=== PATIENT | male | born 1990 | race African-American/Black ===

== ENCOUNTER 2019-11-08 19:57 | Emergency (ER) | payer OTHER ==
[~2019-11-08] VITALS: Ht 175.3 cm; Wt 65.8 kg
[2019-11-08 20:08] VITALS: BP 144/77
[2019-11-08] MEDS ORDERED: AMOXICILLIN 50500 MG PO (20:26)
[2019-11-08] MEDS ORDERED: PERIOGARD473 ML SWISH&SPIT (20:27)
== END 2019-11-08 20:39 | disposition home or self-care (01) ==
LOC: M.ERS 19:57
DX: K08.89 Other specified disorders of teeth and supporting structures (principal)

== ENCOUNTER 2020-03-28 19:17 | Emergency (ER) | payer OTHER ==
[~2020-03-28] VITALS: Ht 172.7 cm; Wt 68.0 kg
[~2020-03-28 19:17] MED LIST: AMOXICILLIN 50500 MG PO; PERIOGARD473 ML SWISH&SPIT
[2020-03-28 19:37] LABS: URINE BILIRUBIN NEGATIVE (Negative); URINE BLOOD NEGATIVE (Negative); URINE CLARITY CLOUDY; URINE COLOR YELLOW; URINE GLUCOSE-RANDOM NEGATIVE (Negative); URINE KETONES NEGATIVE (Negative); URINE LEUKOCYTES-REFLEX 1+ (Negative); URINE NITRITE-REFLEX NEGATIVE (Negative); URINE PROTEIN NEGATIVE (Negative); URINE SPECIFIC GRAVITY 1.025 (1.005-1.030); URINE UROBILINOGEN 0.2 E.U./dl (0.2-1.0)
[2020-03-28 20:42] LABS: BACTERIA-REFLEX 1-9 Few /HPF (None Seen); CASTS None Seen /LPF (None Seen); CRYSTALS None Seen /LPF (None Seen); SQUAMOUS 0-3 Few /LPF (0-3); URINE RBC 0-2 Rare /HPF (0-2); URINE WBC-REFLEX >25 Many /HPF (0-5)
[2020-03-28] MEDS ORDERED: DOXYCYCLINE 10100 MG PO (20:51)
[2020-03-28 21:05] VITALS: BP 122/74
== END 2020-03-28 21:05 | disposition home or self-care (01) ==
LOC: M.ERS 19:17
PROVIDERS: Emergency Medicine
DX: N39.0 Urinary tract infection, site not specified (principal)

== ENCOUNTER 2020-05-14 15:55 | Emergency (ER) | payer OTHER ==
[~2020-05-14] VITALS: Ht 175.3 cm; Wt 68.0 kg
[~2020-05-14 15:55] MED LIST changes: +DOXYCYCLINE 10100 MG PO
[2020-05-14 16:17] LABS: URINE BILIRUBIN NEGATIVE (Negative); URINE BLOOD NEGATIVE (Negative); URINE CLARITY CLEAR; URINE COLOR YELLOW; URINE GLUCOSE-RANDOM NEGATIVE (Negative); URINE KETONES NEGATIVE (Negative); URINE LEUKOCYTES-REFLEX NEGATIVE (Negative); URINE NITRITE-REFLEX NEGATIVE (Negative); URINE PROTEIN NEGATIVE (Negative); URINE UROBILINOGEN 0.2 E.U./dl (0.2-1.0)
[2020-05-14 16:37] VITALS: BP 130/68
== END 2020-05-14 16:38 | disposition home or self-care (01) ==
LOC: M.ERS 15:55
PROVIDERS: Nurse Practitioner Family
DX: N34.2 Other urethritis (principal)

== ENCOUNTER 2020-07-01 00:55 | Emergency (ER) | payer OTHER ==
[~2020-07-01] VITALS: Ht 175.3 cm; Wt 65.8 kg
[2020-07-01 01:50] VITALS: BP 150/96
== END 2020-07-01 01:51 | disposition left against medical advice (07) ==
LOC: M.ERS 00:55
DX: Z53.21 Procedure and treatment not carried out due to patient leaving prior to being seen by health care provider (principal)

== ENCOUNTER 2020-07-01 10:45 | Emergency (ER) | payer OTHER ==
[~2020-07-01] VITALS: Ht 177.8 cm; Wt 61.2 kg
[2020-07-01 11:18] LABS: ABSOLUTE BASOPHILS 0.1 thou/uL (0.0-0.2); ABSOLUTE EOSINOPHILS 0.8 thou/uL (0.0-0.7); ABSOLUTE LYMPHOCYTES 3.2 thou/uL (0.8-5.3); ABSOLUTE NEUTROPHILS 4.2 thou/uL (1.6-8.1); BASOPHILS 1.3 %; HEMATOCRIT 43.9 % (42.0-52.0); HEMOGLOBIN 14.3 gm/dL (14.0-18.0); LYMPHOCYTES 34.6 %; MCH 27.4 pg (26.0-34.0); MCHC 32.7 g/dL (28.0-37.0); MCV 83.9 fL (80.0-100.0); MPV 7.2 fl. (7.2-11.1); NUCLEATED RBCS 0 /100WBC; PLATELET COUNT* 272 thou/uL (150-400); POLYS 45.1 %; RBC 5.23 mil/uL (4.50-6.00); RDW-CV 13.2 % (10.5-14.5); WBC 9.4 thou/uL (4.0-11.0)
[2020-07-01 11:31] LABS: CALCIUM 9.3 mg/dL (8.5-10.1); CREATININE 1.1 mg/dL (0.6-1.3); POTASSIUM 3.3 mmol/L (3.5-5.1)
[2020-07-01 11:33] LABS: ACETAMINOPHEN < 2 ug/mL (10-30); ALCOHOL < 10 mg/dL (<10); SALICYLATE 3.4 mg/dL (2.8-20.0)
[2020-07-01 11:36] LABS: ALBUMIN 4.3 g/dL (3.4-5.0); TOTAL BILIRUBIN 0.4 mg/dL (<0.1-1.0); TOTAL PROTEIN 7.6 g/dL (6.4-8.2)
[2020-07-01 11:53] LABS: URINE BILIRUBIN NEGATIVE (Negative); URINE BLOOD NEGATIVE (Negative); URINE CLARITY CLEAR; URINE COLOR YELLOW; URINE GLUCOSE-RANDOM NEGATIVE (Negative); URINE KETONES 1+ (Negative); URINE LEUKOCYTES-REFLEX NEGATIVE (Negative); URINE NITRITE-REFLEX NEGATIVE (Negative); URINE PROTEIN NEGATIVE (Negative); URINE SPECIFIC GRAVITY >= 1.030 (1.005-1.030); URINE UROBILINOGEN 0.2 E.U./dl (0.2-1.0)
[2020-07-01 12:05] LABS: AMP/METHAMP Negative (Negative); BARBITURATES Negative (Negative); BENZODIAZEPINES Negative (Negative); COCAINE Negative (Negative); METHADONE Negative (Negative); OPIATES Negative (Negative); PCP Negative (Negative); THC POSITIVE (Negative)
[2020-07-03 13:07] VITALS: BP 145/90
== END 2020-07-03 13:07 ==
LOC: M.ERS 10:45
PROVIDERS: Emergency Medicine Emergency Medical Services
DX: F29 Unspecified psychosis not due to a substance or known physiological condition (principal); F31.9 Bipolar disorder, unspecified; F20.9 Schizophrenia, unspecified; Z20.828 Contact with and (suspected) exposure to other viral communicable diseases

== ENCOUNTER 2020-09-04 12:36 | Inpatient (IN) | payer OTHER ==
[~2020-09-04] VITALS: Ht 172.7 cm; Wt 78.5 kg
[2020-09-04 12:38] VITALS: BP 137/98
[2020-09-04 13:05] LABS: ABSOLUTE BASOPHILS 0.1 thou/uL (0.0-0.2); ABSOLUTE EOSINOPHILS 0.7 thou/uL (0.0-0.7); ABSOLUTE LYMPHOCYTES 2.1 thou/uL (0.8-5.3); ABSOLUTE MONOCYTES 0.9 thou/uL (0.0-1.2); ABSOLUTE NEUTROPHILS 4.8 thou/uL (1.6-8.1); BASOPHILS 1.3 %; EOSINOPHILS 8.5 %; HEMATOCRIT 44.2 % (42.0-52.0); HEMOGLOBIN 14.4 gm/dL (14.0-18.0); LYMPHOCYTES 23.7 %; MCHC 32.5 g/dL (28.0-37.0); MONOCYTES 10.9 %; MPV 6.7 fl. (7.2-11.1); NUCLEATED RBCS 0 /100WBC; PLATELET COUNT* 325 thou/uL (150-400); POLYS 55.6 %; RBC 5.32 mil/uL (4.50-6.00); RDW-CV 15.1 % (10.5-14.5); WBC 8.7 thou/uL (4.0-11.0)
[2020-09-04 13:14] LABS: CALCIUM 8.8 mg/dL (8.5-10.1); CREATININE 1.1 mg/dL (0.6-1.3); POTASSIUM 3.8 mmol/L (3.5-5.1)
[2020-09-04 13:22] LABS: ACETAMINOPHEN < 2 ug/mL (10-30); ALCOHOL < 10 mg/dL (<10); SALICYLATE < 2.8 mg/dL (2.8-20.0)
[2020-09-04 13:26] LABS: ALBUMIN 3.5 g/dL (3.4-5.0); TOTAL BILIRUBIN 0.2 mg/dL (<0.1-1.0); TOTAL PROTEIN 6.6 g/dL (6.4-8.2)
[2020-09-04 13:27] LABS: URINE BILIRUBIN NEGATIVE (Negative); URINE BLOOD NEGATIVE (Negative); URINE CLARITY CLEAR; URINE COLOR YELLOW; URINE GLUCOSE-RANDOM NEGATIVE (Negative); URINE KETONES NEGATIVE (Negative); URINE LEUKOCYTES-REFLEX NEGATIVE (Negative); URINE NITRITE-REFLEX NEGATIVE (Negative); URINE PROTEIN NEGATIVE (Negative); URINE SPECIFIC GRAVITY 1.025 (1.005-1.030); URINE UROBILINOGEN 0.2 E.U./dl (0.2-1.0)
[2020-09-04 13:35] LABS: AMP/METHAMP Negative (Negative); BARBITURATES Negative (Negative); BENZODIAZEPINES Negative (Negative); COCAINE Negative (Negative); METHADONE Negative (Negative); OPIATES Negative (Negative); PCP Negative (Negative); THC POSITIVE (Negative)
[2020-09-04] MEDS ORDERED: ABILIFY 5 MG TAB5 MG PO (20:36)
[2020-09-04] MEDS ORDERED: DESYREL150 MG PO (20:37)
[2020-09-05] VITALS (7 sets, daily range): BP systolic 112–129; BP diastolic 61–84
[2020-09-05 11:01] LABS: CALCIUM 9.5 mg/dL (8.5-10.1); CREATININE 1.2 mg/dL (0.6-1.3); POTASSIUM 4.7 mmol/L (3.5-5.1)
--- NOTE | 2020-09-05 14:58 | 2DMMODE ---
[place] [address] 2 D/M-MODE ECHOCARDIOGRAM Name: MAVERICK GASCA [facility] Room: [address] IN [facility]#: [id number] Admission: 09/05/20 Attend Phys: Jeanne Hopkins, Discharge: Date of : 89 Date of Service: 09/05/20 1457 Report #: [id number] THIS REPORT FOR: cc: FAM - No family physician/PCP FAM - No family physician/PCP Terry Alvarez MD [facility] ~ APPROVED REPORT Study performed: 09/05/2020 13:43:42 EXAM: Comprehensive 2D, Doppler, and color-flow Echocardiogram Patient Location: In-Patient Room #: er Status: routine BSA: 1.84 HR: 79 bpm BP: 131/94 mmHg Rhythm: Bradycardia Other Information Study Quality: Good Indications Bradycardia 2D Dimensions IVSd: 10.12 (7-11mm) LVOT Diam: 20.71 (18-24mm) LVDd: 44.89 mm PWd: 10.54 (7-11mm) Ascending Ao: 24.50 (22-36mm) LVDs: 31.25 (25-40mm) Aortic Root: 28.26 mm Volumes Left Atrial Volume (Systole) LA ESV Index: 32.30 mL/m2 Aortic Valve AoV Peak Delfin.: 1.32 m/s AO Peak Gr.: 6.97 mmHg LVOT Max P.20 mmHg AO Mean Gr.: 3.40 mmHg LVOT Mean P.21 mmHg LVOT Max V: 1.14 m/s AO V2 VTI: 21.85 cm LVOT Mean V: 0.67 m/s RONAL (VTI): 3.13 cm2 LVOT V1 VTI: 20.27 [place] [address] 2 D/M-MODE ECHOCARDIOGRAM Name: MAVERICK GASCA [facility] Room: [address] IN [facility].#: [id number] Admission: 09/05/20 Attend Phys: Jeanne Hopkins, Discharge: Date of : 89 Date of Service: 09/05/20 1457 Report #: [id number] Mitral Valve E/A Ratio: 2.04 MV Decel. Time: 190.62 ms MV E Max Delfin.: 0.64 m/s MV PHT: 55.28 ms MVA (PHT): 3.98 cm2 TDI E/Lateral E': 2.91 E/Medial E': 4.27 Medial E' Delfin.: 0.15 m/s Lateral E' Delfin.: 0.22 m/s Pulmonary Valve PV Peak Delfin.: 0.87 m/s PV Peak Gr.: 3.01 mmHg Tricuspid Valve RAP Estimate: 5.00 mmHg TR Peak Gr.: 13.27 mmHg RVSP: 18.00 mmHg PA Pressure: 18.00 mmHg Left Ventricle The left ventricle is normal size. There is normal LV segmental wall motion. There is normal left ventricular wall thickness. Left ventricular systolic function is normal. LVEF is 55-60%. The left ventricular diastolic function is normal. Right Ventricle The right ventricle is normal size. The right ventricular systolic function is normal. Atria The left atrium size is normal. The right atrium size is normal. Aortic Valve The aortic valve is normal in structure. No aortic regurgitation is present. There is no aortic valvular stenosis. Mitral Valve The mitral valve is normal in structure. There is no mitral valve regurgitation noted. No evidence of mitral valve stenosis. Tricuspid Valve The tricuspid valve is normal in structure. Trace tricuspid regurgitation. [place] [address] 2 D/M-MODE ECHOCARDIOGRAM Name: MAVERICK GASCA [facility] Room: [address] IN ..#: [id number] Admission: 09/05/20 Attend Phys: Jeanne Hopkins, Discharge: Date of : 89 Date of Service: 09/05/20 1457 Report #: [id number] Pulmonic Valve The pulmonary valve is normal in structure. Mild pulmonic regurgitation. Great Vessels The aortic root is normal in size. IVC is normal in size and collapses >50% with inspiration. Pericardium There is no pericardial effusion. <Conclusion> The left ventricle is normal size. There is normal left ventricular wall thickness. Left ventricular systolic function is normal. LVEF is 55-60%. The left ventricular diastolic function is normal. Trace tricuspid regurgitation. No pulmonary hypertension. IVC is normal in size and collapses >50% with inspiration. <ELECTRONICALLY SIGNED> By: Terry Alvarez MD, FACC 09/05/20 1457 1457 1457 Terry Alvarez MD, FACC /INF
--- NOTE | 2020-09-05 16:29 | EKG ---
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: JUSTICE : 1990 Requested By: Quique Heard Order Number: [id number] MD: Terry Alvarez Measurements Intervals [place] Rate: 93 P: NE: QRS: 75 QRSD: 97 T: 60 QT: 371 QTc: 462 Interpretive Statements Accelerated junctional rhythm Diffuse ST segment elevation, consider pericarditis versus early repolarization No previous ECG available for comparison Electronically Signed On 09-05-2020 16:29:26 ELECTRONIC EQUIPMENT SET UP OPERATOR by Terry Alvarez [email or web address] <ELECTRONICALLY SIGNED> By: Terry Alvarez MD, FACC 09/05/20 1629 1034 1034 Terry Alvarez MD, [facility] /EPI
--- NOTE | 2020-09-05 16:30 | EKG ---
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 : 1990 Requested By: Quique Heard Order Number: [id number] Reading MD: Terry Alvarez Measurements Intervals [place] Rate: 100 P: NC: QRS: 73 QRSD: 96 T: 57 QT: 353 QTc: 456 Interpretive Statements Junctional tachycardia Diffuse ST segment elevation, consider pericarditis versus early repolarization compared to ECG 09/05/2020 10:34:48 No significant changes noted Electronically Signed On 09-05-2020 16:29:59 PROCUREMENT FORESTER by Terry Alvarez [email or web address] <ELECTRONICALLY SIGNED> By: Terry Alvarez MD, FACC 09/05/20 1629 1035 1035 Terry Alvarez MD, FAC /EPI
[2020-09-06] VITALS (8 sets, daily range): BP systolic 99–133; BP diastolic 61–77
--- NOTE | 2020-09-06 09:07 | CON ---
[address] [address] CONSULTATION Name: MAVERICK GASCA [facility] Room: [address] IN ..#: [id number] Admission: 09/05/20 Attend Phys: Jeanne Hopkins MD Discharge: Date of : 89 Report #: [id number] THIS REPORT FOR: cc: FAM - No family physician/PCP FAM - No family physician/PCP ~ Terry Alvarez MD [facility] DATE OF SERVICE: 09/05/2020 CARDIOLOGY CONSULTATION INDICATION: Abnormal EKG. HISTORY OF PRESENT ILLNESS: The patient is a 30-year-old gentleman admitted through the Emergency Room with acute jen. Initial EKG showed junctional tachycardia with diffuse ST segment elevation. There is no complaint of chest pain. The patient's past medical history was fairly unremarkable with the exception of schizoaffective bipolar disorder. The patient's reported no cardiac symptoms prior to arrival. The patient is not having any significant chest pain or shortness of breath at this time. ALLERGIES: None. CURRENT MEDICATIONS: Abilify 5 mg daily and trazodone at bedtime. PAST MEDICAL HISTORY: Schizoaffective, bipolar disorder. FAMILY HISTORY: Noncontributory. SOCIAL HISTORY: The patient smokes daily. He drinks alcohol on occasion. REVIEW OF SYSTEMS: As per HPI, otherwise unremarkable with the exception of manic depressive symptoms. PHYSICAL EXAMINATION: VITAL SIGNS: Presently stable. Blood pressure 126/78, pulse 67 and regular. GENERAL: This is a pleasant, healthy appearing young gentleman in no distress. Mood and affect appropriate. HEENT: Head is normocephalic and atraumatic. Extraocular muscles intact. Mucous membranes are moist. NECK: Shows no jugular venous distention. There are no carotid bruits. CHEST: Reveals clear lung camara without wheezes or rales. CARDIOVASCULAR: Reveals a regular rhythm, normal S1, S2. I do not appreciate gallop or murmur. ABDOMEN: Reveals normal bowel sounds. The abdomen [place] [address] CONSULTATION Name: MAVERICK GASCA [facility] Room: [address] IN [facility].#: [id number] Admission: 09/05/20 Attend Phys: Jeanne Hopkins MD Discharge: Date of : 89 Report #: [id number] EXTREMITIES: Shows no edema. Peripheral pulses 2+ and palpable. SKIN: Warm and dry. LABORATORY DATA: Reviewed. Sodium 140, potassium 4.7, chloride 106, bicarbonate 27, BUN 10, creatinine 1.2 and serum glucose 102. LFTs within normal limits. Troponin less than 0.06. White blood cell count 8.7, hemoglobin 14.4 and platelet count 325,000. Chest x-ray shows no acute cardiopulmonary abnormality. A 12-lead EKG shows a junctional tachycardia with diffuse ST segment elevation. I do not appreciate pathologic Q-waves. A 2-dimensional echocardiogram has been obtained and shows normal LV systolic and diastolic function. No valvular abnormalities were noted. The echocardiogram was essentially normal. There was no evidence of effusion. IMPRESSION AND RECOMMENDATIONS: 1. Abnormal EKG. Presently stable. Sinus rhythm on telemetry monitoring presently. No further treatment or evaluation at this time. 2. Manic depressive disorder per hospitalist. I believe the patient is stable from a cardiac standpoint for inpatient treatment at outside facility. <ELECTRONICALLY SIGNED> By: Terry Alvarez MD, FACC 09/06/20 0907 1712 [email or web address] Alvarez MD, FACC /nt
[2020-09-06 10:02] LABS: ABSOLUTE BASOPHILS 0.1 thou/uL (0.0-0.2); ABSOLUTE EOSINOPHILS 0.6 thou/uL (0.0-0.7); ABSOLUTE LYMPHOCYTES 1.8 thou/uL (0.8-5.3); ABSOLUTE MONOCYTES 0.6 thou/uL (0.0-1.2); ABSOLUTE NEUTROPHILS 5.8 thou/uL (1.6-8.1); BASOPHILS 1.2 %; EOSINOPHILS 6.8 %; HEMATOCRIT 40.8 % (42.0-52.0); HEMOGLOBIN 13.3 gm/dL (14.0-18.0); LYMPHOCYTES 20.5 %; MCH 26.9 pg (26.0-34.0); MCHC 32.7 g/dL (28.0-37.0); MCV 82.2 fL (80.0-100.0); MONOCYTES 6.8 %; MPV 6.7 fl. (7.2-11.1); NUCLEATED RBCS 0 /100WBC; PLATELET COUNT* 288 thou/uL (150-400); POLYS 64.7 %; RBC 4.97 mil/uL (4.50-6.00); RDW-CV 14.6 % (10.5-14.5); WBC 8.9 thou/uL (4.0-11.0)
[2020-09-06 10:23] LABS: ALBUMIN 3.1 g/dL (3.4-5.0); ALKALINE PHOSPHATASE 42 U/L (46-116); ANION GAP 9 mmol/L (7-16); BUN 9 mg/dL (7-18); CALCIUM 8.8 mg/dL (8.5-10.1); CHLORIDE 104 mmol/L (98-107); CO2 25 mmol/L (21-32); CREATININE 1.2 mg/dL (0.6-1.3); GLUCOSE 146 mg/dL (70-99); POTASSIUM 3.6 mmol/L (3.5-5.1); SGOT 28 U/L (15-37); SGPT 30 U/L (30-65); SODIUM 138 mmol/L (136-145); TOTAL BILIRUBIN 0.4 mg/dL (<0.1-1.0); TOTAL PROTEIN 5.9 g/dL (6.4-8.2); TROPONIN-I LEVEL <0.06 ng/mL (<0.06)
[2020-09-07] VITALS (9 sets, daily range): BP systolic 117–133; BP diastolic 63–86
--- NOTE | 2020-09-07 14:13 | EKG ---
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: ALONZO : 1990 Requested By: Jeanne Hopkins Order Number: [id number] Reading MD: Terry Alvarez Measurements Intervals [place] Rate: 71 P: 14 PA: 152 QRS: 65 QRSD: 102 T: 35 QT: 372 QTc: 405 Interpretive Statements Sinus rhythm ST elevation suggests acute pericarditis Compared to ECG 09/05/2020 10:35:56 Junctional tachycardia no longer present ST (T wave) deviation still present Electronically Signed On 09-07-2020 14:13:18 MATERIALS SCHEDULER by Terry Alvarez [email or web address] <ELECTRONICALLY SIGNED> By: Terry Alvarez MD, FACC 09/07/20 1413 8 8 Terry Alvarez MD, FACC /EPI
[2020-09-08 08:00] VITALS: BP 126/74
[2020-09-08] MEDS ORDERED: TRAZODONE HCL100 MG PO (09:09)
[2020-09-08] MEDS ORDERED: IBUPROFEN 800800 M1 PO (09:09)
[2020-09-08] MEDS ORDERED: TRAMADOL 50 MG50 MG PO (09:09)
[2020-09-08 16:57] VITALS: BP 127/69
[2020-09-08 21:00] VITALS: BP 110/64
[2020-09-09 08:00] VITALS: BP 112/70
[2020-09-09 16:10] VITALS: BP 120/71
[2020-09-09 20:26] VITALS: BP 131/67
[2020-09-10 07:30] VITALS: BP 115/76
[2020-09-10 15:58] VITALS: BP 136/75
[2020-09-10 21:39] VITALS: BP 120/68
[2020-09-11 07:20] VITALS: BP 137/82
[2020-09-11 10:31] VITALS: BP 137/82
[2020-09-11 15:30] VITALS: BP 125/80
[2020-09-11 20:26] VITALS: BP 117/78
[2020-09-12 07:40] VITALS: BP 122/81
[2020-09-12 07:57] VITALS: BP 170/75
[2020-09-12 08:42] VITALS: BP 137/82
[2020-09-12 15:53] VITALS: BP 137/82
[2020-09-12 16:19] VITALS: BP 137/82
== END 2020-09-12 16:10 | disposition home or self-care (01) | DRG 309 ==
LOC: M.ERS 12:36 → M.TBA-ER 09-05 11:05 → M.ICU 09-05 14:48 → M.3W 09-09 10:59
PROVIDERS: Emergency Medicine Emergency Medical Services; ADMIT Internal Medicine; ATTEND Internal Medicine
DX: R00.1 Bradycardia, unspecified (principal); R45.851 Suicidal ideations; N39.0 Urinary tract infection, site not specified; F30.9 Manic episode, unspecified; Y92.89 Other specified places as the place of occurrence of the external cause; K08.89 Other specified disorders of teeth and supporting structures; G89.29 Other chronic pain; T50.905A Adverse effect of unspecified drugs, medicaments and biological substances, initial encounter; Z20.822 Contact with and (suspected) exposure to COVID-19